=== PATIENT | male | born 2000 | race African-American/Black ===

== ENCOUNTER 2020-11-28 20:56 | Emergency (ER) | payer OTHER ==
[~2020-11-28] VITALS: Ht 182.9 cm; Wt 74.8 kg
[2020-11-28] MEDS ORDERED: KETOROLAC TROMETHAMINE INJ 30 MG/ML VIAL ONE (21:15)
[2020-11-28] MEDS ORDERED: ONDANSETRON HCL/PF 4 MG/2 ML VIAL ONE (21:15)
--- NOTE | 2020-11-28 21:16 | NUR ---
US AT BEDSIDE AT THIS TIME
[2020-11-28] MEDS ORDERED: ONDANSETRON HCL/PF 4 MG/2 ML VIAL IVP ONE (21:30)
[2020-11-28] MEDS ORDERED: IV NS 0.9% 1,000 ML BAG IV ONE (21:30)
[2020-11-28] MEDS ORDERED: KETOROLAC TROMETHAMINE INJ 30 MG/ML VIAL IV ONE (21:30)
[2020-11-28 21:59] LABS: BASOPHILS # (AUTO) 0.1 K/uL (0.0-0.2); BASOPHILS % (AUTO) 0.5 % (0.0-2.0); EOSINOPHILS % (AUTO) 0.8 % (0.0-6.0); HEMATOCRIT 43 % (39-51); HEMOGLOBIN 14.4 g/dL (13.5-17.5); LYMPHOCYTES # (AUTO) 2.1 K/uL (0.8-4.8); LYMPHOCYTES % (AUTO) 20.5 % (20.0-44.0); MEAN CORPUSCULAR HGB CONC 34 g/dl (31.0-36.0); MEAN CORPUSCULAR VOLUME 92 fL (80-96); MONOCYTES # (AUTO) 0.7 K/uL (0.1-1.30); MONOCYTES % (AUTO) 6.6 % (2.0-12.0); NEUTROPHILS # (AUTO) 7.4 K/uL (1.8-8.9); NEUTROPHILS % (AUTO) 71.6 % (43.0-81.0); PLATELET COUNT (AUTO) 228 K/uL (150-450); RED BLOOD CELL COUNT(AUTO) 4.69 MIL/uL (4.5-6.0); WHITE BLOOD COUNT (AUTO) 10.3 K/uL (4.3-11.0)
[2020-11-28 22:16] LABS: CALCIUM, SERUM 8.6 mg/dL (8.5-10.1); CREATININE 0.9 mg/dL (0.6-1.3); POTASSIUM 3.6 mmol/L (3.5-5.1)
[2020-11-28 22:21] LABS: BILIRUBIN,DIRECT 0.1 mg/dL (0.0-0.2); BILIRUBIN,TOTAL 0.7 mg/dL (0.2-1.0); TOTAL PROTEIN, SERUM 8.1 g/dL (6.4-8.2)
[2020-11-28 22:36] LABS: BILIRUBIN,URINE Negative (NEGATIVE); COLOR,URINE YELLOW (YELLOW); LEUKOCYTE ESTERASE ,URINE Negative (NEGATIVE); NITRITE, URINE Negative (NEGATIVE); PROTEIN,URINE Negative (NEGATIVE); UGLUCOSE Negative (NEGATIVE); UROBILINOGEN,URINE 0.2 EU/dL (0.2)
[2020-11-28] MEDS ORDERED: IBUP-1955 PO (22:44)
--- NOTE | 2020-11-28 22:53 | NUR ---
Patient discharged to home in stable condition. RX Written and verbal after care instructions given. Patient AND MOM verbalizes understanding of instruction. pt ambulatory with a steady gait.
[2020-11-28 23:03] VITALS: BP 125/71
== END 2020-11-28 23:04 | disposition home or self-care (01) ==
LOC: ER 21:00
DX: N44.00 Torsion of testis, unspecified (principal); N43.3 Hydrocele, unspecified; R11.10 Vomiting, unspecified; Z79.899 Other long term (current) drug therapy
CPT/HCPCS: 36415; 76870 ×2; 80048; 80076; 81003; 85025; 96361; 96374; 96375; 99285; J1885; J2405

== ENCOUNTER 2021-04-30 10:55 | Emergency (ER) | payer OTHER ==
[~2021-04-30] VITALS: Ht 177.8 cm; Wt 68.6 kg
[~2021-04-30 10:55] MED LIST: IBUP-1955 PO
--- NOTE | 2021-04-30 11:03 | NUR ---
BIBMOTHER FOR C/O LEFT TESTICULAR SWELLING AND PAIN 12/22 STARTED TODAY AM DENIES ANY TRAUMA. DOES NOT PLAY SPORTS. HX OF TESTICULAR TORSION. VITALS ARE WITHIN NORMAL LIMITS. BREATHING IS EVEN AND UNLABORED. PROVIDED WITH WARM BLANKET FOR COMFORT. AWAITING MD MORRISSEY.
--- NOTE | 2021-04-30 11:38 | NUR ---
LEFT MESSAGE TO DR SCHNEIDER
--- NOTE | 2021-04-30 11:54 | NUR ---
DR EDWARDS ON THE PHONE WITH DR SCHNEIDER
[2021-04-30] MEDS ORDERED: MORPHINE SULFATE INJ 2 MG/ML DISP.SYRIN IV ONE (12:00)
[2021-04-30] MEDS ORDERED: ONDANSETRON HCL/PF 4 MG/2 ML VIAL IV ONE (12:00)
--- NOTE | 2021-04-30 12:42 | NUR ---
Patient discharged to home in stable condition. Written and verbal after care instructions given. Patient verbalizes understanding of instruction.
[2021-04-30 12:43] VITALS: BP 110/62
== END 2021-04-30 12:43 | disposition home or self-care (01) ==
LOC: ER 10:58
DX: N44.00 Torsion of testis, unspecified (principal)
CPT/HCPCS: 76870-TC